=== PATIENT | female | born 1985 | race Caucasian/White ===

== ENCOUNTER 2018-06-18 20:52 | Emergency (ER) | payer OTHER ==
[~2018-06-18] VITALS: Ht 157.5 cm; Wt 54.4 kg
[2018-06-18 20:54] VITALS: Ht 157.5 cm; Wt 54.4 kg
[2018-06-18 22:36] VITALS: BP 129/84
== END 2018-06-18 22:36 | disposition other institution (70) ==
LOC: ED 20:52
DX: S00.12XA Contusion of left eyelid and periocular area, initial encounter (principal); S40.212A Abrasion of left shoulder, initial encounter; Y04.8XXA Assault by other bodily force, initial encounter; Y93.89 Activity, other specified; Y92.89 Other specified places as the place of occurrence of the external cause; Y99.8 Other external cause status
CPT/HCPCS: 90715